=== PATIENT | male | born 1965 | race Caucasian/White ===

== ENCOUNTER → 2017-03-21 | Day surgery (SDC) | payer BC ==
[2016-02-22 18:14] VITALS: BP 154/79
[~2017-03-21] MED LIST: AMLODIPINE BESY10 MG PO; CITALOPRAM40 MG PO; NORCO 7.5-3251 EACH PO; ZOFRAN ODT4 MG PO
== END ==
LOC: MSO 08:11
DX: Z12.11 Encounter for screening for malignant neoplasm of colon (principal); Z79.82 Long term (current) use of aspirin; I10 Essential (primary) hypertension; Z87.891 Personal history of nicotine dependence; F32.9 Major depressive disorder, single episode, unspecified
CPT/HCPCS: 00810; J2704; J7120

== ENCOUNTER → 2018-01-03 | Outpatient (CLI) | payer BC ==
[2016-02-22 18:14] VITALS: BP 154/79
[2018-01-03 11:47] LABS: BASO # 0.1 (0.02-0.10); EOS # 0.1 (0.04-0.40); EOS % 1.3 % (0.0-4.0); HEMATOCRIT 46.2 % (42.0-52.0); HEMOGLOBIN 15.3 g/dL (13.5-18.0); LYMPH# 2.8 (1.50-4.00); MEAN CELL VOLUME 93 fl (78-100); MEAN CORPUSCULAR HEMOGLOBIN 31 pg (27-31); MEAN CORPUSCULAR HGB CONC 33 g/dL (33-37); MEAN PLATELET VOLUME 9.4 fl (7.4-10.4); MONO # 0.6 (0.20-0.80); NEU # 4.6 (1.40-6.50); PLATELET COUNT 279 K/mm3 (130-400); RED BLOOD COUNT 4.95 M/mm3 (4.20-5.60); RED CELL DISTRIBUTION WIDTH 13.8 % (11.5-14.5); WHITE BLOOD COUNT 8.2 K/mm3 (4.8-10.8)
[2018-01-03 12:04] LABS: URINE APPEARANCE CLEAR; URINE BILIRUBIN NEGATIVE (NEGATIVE); URINE BLOOD 50 ery/uL (NEGATIVE); URINE COLOR YELLOW; URINE GLUCOSE NEGATIVE (NEGATIVE); URINE KETONE NEGATIVE (NEGATIVE); URINE LEUKOCYTE ESTERASE NEGATIVE (NEGATIVE); URINE MUCUS PRESENT (NOT PRESENT); URINE NITRATE NEGATIVE (NEGATIVE); URINE PROTEIN(semi-quant) TRACE mg/dL (NEGATIVE); URINE UROBILINOGEN NORMAL (NORMAL)
[2018-01-03 12:29] LABS: ALBUMIN 4.3 g/dL (3.5-5.0); CALCIUM 9.5 mg/dL (8.4-10.2); TOTAL BILIRUBIN 0.6 mg/dL (0.2-1.3); TOTAL PROTEIN 7.2 g/dL (6.3-8.2)
== END ==
LOC: LAB 11:35
PROVIDERS: Family Medicine
DX: Z12.9 Encounter for screening for malignant neoplasm, site unspecified (principal); R35.0 Frequency of micturition

== ENCOUNTER → 2019-07-21 | Outpatient (CLI) | payer BC ==
[2019-07-15 17:32] VITALS: BP 126/73
[~2019-07-21] MED LIST changes: +ASPIRIN 32325 MG/TAB PO; +ATORVASTATIN CA80 MG PO; +METOPROLOL SUCC25 M1 PO; +SERTRALINE50 MG PO
== END ==
LOC: RAD 06:46
DX: R41.82 Altered mental status, unspecified (principal); R53.1 Weakness
CPT/HCPCS: A9585

== ENCOUNTER → 2019-07-23 | Outpatient (CLI) | payer BC ==
[2019-07-15 17:32] VITALS: BP 126/73
== END ==
LOC: RAD 08:55
DX: R06.02 Shortness of breath (principal); R07.9 Chest pain, unspecified
CPT/HCPCS: Q9967

== ENCOUNTER 2021-03-30 06:30 | Emergency (ER) | payer BC ==
[~2021-03-30] VITALS: Ht 175.3 cm; Wt 73.8 kg
[2021-03-30 07:37] VITALS: BP 119/86
== END 2021-03-30 07:30 | disposition home or self-care (01) ==
LOC: ED 06:30
DX: R05.9 Cough, unspecified (principal)

== ENCOUNTER 2021-07-24 08:01 | Emergency (ER) | payer BC ==
[~2021-07-24] VITALS: Ht 175.3 cm; Wt 77.8 kg
[2021-07-24 09:03] LABS: BASO # 0.05 K/mm3 (0.02-0.10); EOS # 0.09 K/mm3 (0.04-0.40); EOS % 0.8 % (0.0-4.0); HEMATOCRIT 47.5 % (42.0-52.0); HEMOGLOBIN 15.8 g/dL (13.5-18.0); MEAN CELL VOLUME 94 fl (78-100); MEAN CORPUSCULAR HEMOGLOBIN 31 pg (27-31); MEAN CORPUSCULAR HGB CONC 33 g/dL (33-37); MEAN PLATELET VOLUME 9.1 fl (7.4-10.4); MONO # 0.68 K/mm3 (0.20-0.80); NEU # 8.67 K/mm3 (1.40-6.50); PLATELET COUNT 266 K/mm3 (130-400); RED BLOOD COUNT 5.03 M/mm3 (4.20-5.60); RED CELL DISTRIBUTION WIDTH 12.9 % (11.5-14.5); WHITE BLOOD COUNT 11.9 K/mm3 (4.8-10.8)
[2021-07-24] MEDS ORDERED: NICOTINE7 MG/24 HR TD (09:17)
[2021-07-24] MEDS ORDERED: WELLBUTRIN SR150 M2 PO (09:18)
[2021-07-24 09:21] LABS: ALBUMIN 4.4 g/dL (3.5-5.0); POTASSIUM 3.9 mmol/L (3.5-5.1); SODIUM 142 mmol/L (136-145)
[2021-07-24 09:23] LABS: CALCIUM 9.6 mg/dL (8.3-10.5)
[2021-07-24 09:24] LABS: GLUCOSE 106 mg/dL (75-110); TOTAL PROTEIN 7.3 g/dL (6.4-8.3)
[2021-07-24 09:25] LABS: CARBON DIOXIDE 20 mmol/L (22-29)
[2021-07-24 09:26] LABS: TOTAL BILIRUBIN 0.5 mg/dL (0.2-1.2)
[2021-07-24 09:27] LABS: D-DIMER 0.26 mg/L FEU (0.15-0.50)
[2021-07-24 09:29] LABS: AST-SGOT 33 U/L (5-34)
[2021-07-24 09:30] LABS: ALT/SGPT 55 U/L (0-55)
[2021-07-24 09:47] LABS: TROPONIN-I < 0.030 ng/mL (<0.030)
[2021-07-24 13:38] VITALS: BP 139/96
== END 2021-07-24 13:30 | disposition home or self-care (01) ==
LOC: ED 08:01
PROVIDERS: Nurse Practitioner
DX: R07.89 Other chest pain (principal); Z87.891 Personal history of nicotine dependence; Z28.310 Unvaccinated for COVID-19

== ENCOUNTER → 2021-09-22 | Outpatient (CLI) | payer BC ==
[~2021-09-22] MED LIST changes: +NICOTINE7 MG/24 HR TD; +WELLBUTRIN SR150 M2 PO
== END ==
LOC: CARDREHAB 09-08 16:28
DX: R07.9 Chest pain, unspecified (principal)

== ENCOUNTER → 2021-10-04 | Outpatient (CLI) | payer BC | LOC: VAS 14:41 → RAD 15:00 → VAS 15:00 | DX: R94.39 Abnormal result of other cardiovascular function study (principal) ==

== ENCOUNTER 2023-12-10 16:12 | Emergency (ER) | payer BC ==
[~2023-12-10] VITALS: Ht 12.7 cm; Wt 81.8 kg
[~2023-12-10 16:12] MED LIST changes: +AMLODIPINE BESYL5 MG PO
[2023-12-10] MEDS ORDERED: HYDROXYZINE HYD50 M1 PO (16:21)
[2023-12-10] MEDS ORDERED: Iohexol 300 - 100 ML VIAL IV ONE (16:52)
[2023-12-10 16:56] LABS: BASO # 0.02 K/mm3 (0.02-0.10); EOS % 1.2 % (0.0-4.0); HEMATOCRIT 40.3 % (42.0-52.0); HEMOGLOBIN 13.3 g/dL (13.5-18.0); LYMPH# 1.51 K/mm3 (1.50-4.00); MEAN CELL VOLUME 93 fl (78-100); MEAN CORPUSCULAR HEMOGLOBIN 31 pg (27-31); MEAN CORPUSCULAR HGB CONC 33 g/dL (33-37); MEAN PLATELET VOLUME 8.7 fl (7.4-10.4); MONO # 0.82 K/mm3 (0.20-0.80); NEU # 6.07 K/mm3 (1.40-6.50); PLATELET COUNT 220 K/mm3 (130-400); RED BLOOD COUNT 4.35 M/mm3 (4.20-5.60); RED CELL DISTRIBUTION WIDTH 12.9 % (11.5-14.5); WHITE BLOOD COUNT 8.6 K/mm3 (4.8-10.8)
[2023-12-10 17:02] LABS: CALCIUM 9.5 mg/dL (8.3-10.5)
[2023-12-10 17:03] LABS: TOTAL PROTEIN 6.9 g/dL (6.4-8.3)
[2023-12-10 17:05] LABS: TOTAL BILIRUBIN 0.4 mg/dL (0.2-1.2)
[2023-12-10] MEDS ORDERED: Amoxicillin/Clavulanate K+ 875/125 MG TAB PO ONE (18:15)
[2023-12-10] MEDS ORDERED: AMOXICILLIN AND1 TA2 PO (18:19)
[2023-12-10] MEDS ORDERED: CIPROFLOX-DEXA7.5 ML OT (18:19)
[2023-12-10] MEDS ORDERED: DEXAMETHASONE 0.1% OT ONE (18:30)
[2023-12-10] MEDS ORDERED: [UNRECOGNIZED DRUG - OTHER] OT ONE (18:30)
[2023-12-10] MEDS ORDERED: CIPROFLOXACIN 0.3% OT ONE (18:30)
[2023-12-10 18:32] VITALS: BP 129/87
== END 2023-12-10 18:48 | disposition home or self-care (01) ==
LOC: ED 16:12
PROVIDERS: Physician Assistant
DX: H60.91 Unspecified otitis externa, right ear (principal)
CPT/HCPCS: Q9967

== ENCOUNTER 2024-04-07 01:06 | Emergency (ER) | payer BC ==
[~2024-04-07 01:06] MED LIST changes: +AMOXICILLIN AND1 TA2 PO; +CIPROFLOX-DEXA7.5 ML OT; +HYDROXYZINE HYD50 M1 PO
[2024-04-07] MEDS ORDERED: Ondansetron 4 MG/2 ML VIAL IV ONE (01:30)
[2024-04-07] MEDS ORDERED: Morphine 4 MG/ML VIAL IV ONE (01:30)
[2024-04-07] MEDS ORDERED: NS 1,000 ML IV SCH (01:30)
[2024-04-07 01:50] LABS: BASO # 0.03 K/mm3 (0.02-0.10); EOS # 0.12 K/mm3 (0.04-0.40); EOS % 1.4 % (0.0-4.0); HEMATOCRIT 42.1 % (42.0-52.0); HEMOGLOBIN 13.9 g/dL (13.5-18.0); LYMPH# 2.88 K/mm3 (1.50-4.00); MEAN CELL VOLUME 95 fl (78-100); MEAN CORPUSCULAR HEMOGLOBIN 31 pg (27-31); MEAN CORPUSCULAR HGB CONC 33 g/dL (33-37); MEAN PLATELET VOLUME 8.8 fl (7.4-10.4); MONO # 0.66 K/mm3 (0.20-0.80); NEU # 4.49 K/mm3 (1.40-6.50); PLATELET COUNT 270 K/mm3 (130-400); RED BLOOD COUNT 4.44 M/mm3 (4.20-5.60); RED CELL DISTRIBUTION WIDTH 13.7 % (11.5-14.5); WHITE BLOOD COUNT 8.3 K/mm3 (4.8-10.8)
[2024-04-07 01:55] LABS: ALBUMIN 3.9 g/dL (3.5-5.0)
[2024-04-07 01:56] LABS: CALCIUM 9.5 mg/dL (8.3-10.5)
[2024-04-07 01:58] LABS: TOTAL PROTEIN 6.6 g/dL (6.4-8.3)
[2024-04-07 01:59] LABS: TOTAL BILIRUBIN 0.3 mg/dL (0.2-1.2)
[2024-04-07] MEDS ORDERED: Ketorolac 30 MG/ML VIAL IV ONE (02:15)
[2024-04-07 03:14] LABS: PH-URINE 5.5 (5.0 - 8.0); URINE APPEARANCE CLEAR (CLEAR); URINE BILIRUBIN NEGATIVE (NEGATIVE); URINE BLOOD NEGATIVE (NEGATIVE); URINE COLOR YELLOW (YELLOW); URINE GLUCOSE NEGATIVE (NEGATIVE); URINE KETONE NEGATIVE (NEGATIVE); URINE LEUKOCYTE ESTERASE NEGATIVE (NEGATIVE); URINE NITRATE NEGATIVE (NEGATIVE); URINE PROTEIN(semi-quant) NEGATIVE (NEGATIVE); URINE WBC 0-1 /hpf (0-3)
[2024-04-07] MEDS ORDERED: Iohexol 300 - 100 ML VIAL IV ONE (03:45)
[2024-04-07] MEDS ORDERED: NORCO 325 MG-51 TA1 PO (05:52)
[2024-04-07 06:05] VITALS: BP 160/98
== END 2024-04-07 06:05 | disposition home or self-care (01) ==
LOC: ED 01:06
PROVIDERS: Nurse Practitioner
DX: S39.012A Strain of muscle, fascia and tendon of lower back, initial encounter (principal); I10 Essential (primary) hypertension; G89.29 Other chronic pain; F17.200 Nicotine dependence, unspecified, uncomplicated; Z86.73 Personal history of transient ischemic attack (TIA), and cerebral infarction without residual deficits; X58.XXXA Exposure to other specified factors, initial encounter
CPT/HCPCS: J1885; J2270; J2405; J7030; Q9967